=== PATIENT | female | born 1945 | race Caucasian/White ===

== ENCOUNTER → 2016-04-11 | Outpatient (CLI) | payer MEDICARE ==
--- NOTE | 2016-04-11 13:34 | REP ---
Clinical: Preoperative assessment. Cataract surgery . Comparison: None . Technique: PA and lateral. Findings: The mediastinum and cardiac silhouette are normal. The lung reed are clear and without acute consolidation, effusion, or pneumothorax. The skeletal structures are intact and normal. Impression: 1. No acute cardiopulmonary process. Signed by Kevin Sanz MD 04/11/2016 01:26 P
[2016-04-11 13:58] LABS: ANION GAP 9 MEQ/L (8-16); BLOOD UREA NITROGEN 17 MG/DL (7-18); CALCIUM LEVEL 9.4 MG/DL (8.8-10.2); CARBON DIOXIDE LEVEL 28 MEQ/L (21-32); CHLORIDE LEVEL 100 MEQ/L (98-107); CREATININE FOR GFR 0.82 MG/DL (0.55-1.02); GLOMERULAR FILTRATION RATE > 60.0 (>39); GLUCOSE, FASTING 313 MG/DL (83-110); SODIUM LEVEL 137 MEQ/L (136-145)
--- NOTE | 2016-04-11 22:27 | ECGEPIP ---
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 Borderline low precordial voltages. No prior ECG available for comparison at the time of interpretation. Electronically Signed On 04-11-2016 22:27:11 EST by Rikki Fry
== END ==
LOC: M LAB 12:28
PROVIDERS: ATTEND Ophthalmology
DX: H25.13 Age-related nuclear cataract, bilateral (principal)